=== PATIENT | male | born 1990 | race Two or more races ===

== ENCOUNTER 2022-12-04 13:21 | Emergency (ER) | payer OTHER ==
[~2022-12-04] VITALS: Ht 165.1 cm; Wt 103.4 kg
[2022-12-04] MEDS ORDERED: PEPCID AC20 MG PO (22:13)
[2022-12-04] MEDS ORDERED: CARAFATE1 GM PO (22:13)
[2022-12-04] MEDS ORDERED: LEVSIN/SL0.125 MG SL (22:13)
== END 2022-12-04 22:21 | disposition home or self-care (01) ==
LOC: ER 13:21
DX: R10.11 Right upper quadrant pain (principal); R10.9 Unspecified abdominal pain